=== PATIENT | male | born 1955 | race Caucasian/White ===

== ENCOUNTER 2024-02-28 08:15 | Outpatient (CLI) | payer OTHER | END 2024-02-28 08:16 | disposition home or self-care (01) | LOC: CSHCT 08:15 | PROVIDERS: ATTEND Orthopaedic Surgery | DX: Z01.818 Encounter for other preprocedural examination (principal); M17.11 Unilateral primary osteoarthritis, right knee ==

== ENCOUNTER 2025-07-23 08:04 | Outpatient (CLI) | payer OTHER | END 2025-07-23 08:05 | disposition home or self-care (01) | LOC: CSHULT 08:04 | PROVIDERS: ATTEND Family Medicine Sports Medicine | DX: R22.1 Localized swelling, mass and lump, neck (principal); M79.89 Other specified soft tissue disorders | CPT/HCPCS: 76536 ==

== ENCOUNTER 2025-08-02 08:27 | Outpatient (CLI) | payer OTHER ==
[2025-08-02] MEDS ORDERED: Iopamidol 300 61% 100 ML VIAL FS ONE (11:05)
[2025-08-02 11:39] LABS: Estimated GFR - POC 54.0
== END 2025-08-02 08:28 | disposition home or self-care (01) ==
LOC: CSHCT 08:27
PROVIDERS: ATTEND Anesthesiology Pain Medicine
DX: R22.1 Localized swelling, mass and lump, neck (principal)
CPT/HCPCS: 70491; 82565; Q9967